=== PATIENT | female | born 1940 | race Caucasian/White ===

== ENCOUNTER → 2017-03-29 | Outpatient (CLI) | payer MEDICARE ==
--- NOTE | 2017-03-30 11:24 | RAD ---
EXAM DESCRIPTION: Chest,2 Views CLINICAL HISTORY: 76-year-old, female, heart failure, unspecified, 12-lead EKG. COMPARISON: None available. FINDINGS: Frontal and lateral views of the chest. Cardiac silhouette shows cardiomegaly. Pulmonary vascularity is within normal limits. Calcific atherosclerosis noted of the aortic arch. Linear opacities in the left retrocardiac region are likely secondary to atelectasis. Underlying infiltrate cannot be entirely excluded, although felt much less likely. Bilateral costophrenic angles are sharp. No pneumothorax. No acute osseous abnormality. Electronically signed by: Kevin Neely MD 03/30/2017 11:22 AM CDT
== END | disposition home or self-care (01) ==
LOC: LAB.O 15:00
PROVIDERS: ATTEND Nurse Practitioner Family
DX: I50.9 Heart failure, unspecified (principal)

== ENCOUNTER → 2018-02-09 | Outpatient (CLI) | payer MEDICARE ==
--- NOTE | 2018-02-09 17:16 | RAD ---
EXAM DESCRIPTION: Wrist,Right 2 Views CLINICAL HISTORY: 77 years ,Female PAIN COMPARISON: None. TECHNIQUE: RIGHT wrist, Three view FINDINGS: There are degenerative changes with narrowing of the radiocarpal joint space and significant degenerative change with narrowing of the joint space and extensive osteophytosis at the first and second carpometacarpal junction. Distal pole of the scaphoid is not well seen. Consider further evaluation with scaphoid view. Calcification in the triangular fibrocartilage. IMPRESSION: Poor visualization of the distal pole of the scaphoid which may be in part due to chronic degenerative changes in patient positioning. 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
== END ==
LOC: RAD 13:51
PROVIDERS: ATTEND Nurse Practitioner Family
DX: M25.539 Pain in unspecified wrist (principal); M19.031 Primary osteoarthritis, right wrist

== ENCOUNTER → 2019-05-28 | Outpatient (CLI) | payer MEDICARE ==
--- NOTE | 2019-05-28 16:48 | CT ---
EXAM DESCRIPTION: Chest w/Contrast CLINICAL HISTORY: 78 years, Female, SOLITARY PULMONARY NODULE COMPARISON: March 29, 2017 chest x-ray TECHNIQUE: Thin-section axial CT images are obtained during rapid bolus administration of nonionic IV contrast media. Reconstructed MPR images are created and reviewed as well. This exam was performed according to our departmental dose-optimization program, which includes automated exposure control, adjustment of the mA and/or kV according to patient size and/or use of iterative reconstruction technique. FINDINGS: Recent imaging is not available for comparison. Enhanced examination of the chest demonstrates a modest retrocardiac hiatal hernia. A specific abnormality below the hemidiaphragms in the right upper quadrant or left upper quadrant is not apparent. Extensive vascular calcification is incidentally noted. Soft tissue images demonstrate no abnormality at the thoracic inlet or superior mediastinum. There is an oval 1 x 1.5 cm nodule in the anterior mediastinum between the pulmonary outflow track and descending aorta with conglomerate approximate 2.5 x 3 cm soft tissue mass in the middle mediastinum in a precarinal location as well as a right paratracheal 2 x 3 cm node or mass at the level of the aortic arch. Possibility that this represents a pleural-based pulmonary mass projecting into the right paratracheal mediastinum cannot be entirely excluded. An additional 1.5 x 2.5 cm subcarinal node or nodule is present. The pattern is consistent with either metastatic disease or a lymphomatous process. An additional approximate 14 mm nodule just anterior to the junction of both innominate veins noted. The left lung demonstrates pleural thickening at the anteromedial left lung base adjacent to the cardiac apex consistent with an element of subsegmental atelectasis of the left lingula. I believe in retrospect this may have been present on previous 2017 chest x-ray. The appearance is not particularly masslike. On the right there is mild scarring at the anteromedial right lung base in the region of the right middle lobe, again without a distinct dominant mass or pattern of metastatic nodules within the lung field. At the anterolateral right lung base there is subsolid haziness and opacification consistent with an acute or chronic inflammatory process. The bony spine is degenerative with no definite chest wall or soft tissue mass or bony destructive process noted. IMPRESSION: 1. Markedly abnormal examination with multiple mediastinal nodes or masses including the anterior middle and subcarinal posterior mediastinum. Metastatic disease or the less likely possibility of a lymphomatous process should be considered. The possibility that the right superior paratracheal and paraesophageal mass represents a peripheral pulmonary mass rather than mediastinal adenopathy would be a consideration. Neoplastic process is strongly suspected. 2. Modest retrocardiac hiatal hernia. 3. Scarring and/or subsegmental atelectasis in the anterior right lung base in the right middle lobe region and the anterior medial left lung base in the lingula. 4. Additional subsolid groundglass opacity and inflammatory changes at the lateral anterior right lung base. Although this could represent scarring the possibility of an acute inflammatory process could not be excluded at the lateral aspect of the right middle lobe. 5. A distinct peripheral pulmonary mass is not evident. Electronically signed by: Willi Taveras MD 05/28/2019 4:47 PM [facility]
== END ==
LOC: LAB.O 13:11
PROVIDERS: ATTEND Nurse Practitioner Family
DX: R91.1 Solitary pulmonary nodule (principal); R91.8 Other nonspecific abnormal finding of lung field; K44.9 Diaphragmatic hernia without obstruction or gangrene; J98.11 Atelectasis